=== PATIENT | male | born 1965 | race Caucasian/White ===

== ENCOUNTER 2020-04-09 08:41 | Outpatient (CLI) | payer BC ==
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
--- NOTE | 2020-04-09 12:15 | MRI ---
CERVICAL SPINE MRI WITHOUT CONTRAST: Date: 04/09/2020 COMPARISON: 06/16/2019. HISTORY: Prior cervical surgery, recent trauma. TECHNIQUE: Multiplanar, multisequence MR imaging of the cervical spine is provided without contrast. FINDINGS: Bilateral posterior fusion hardware and changes of bilateral laminectomy again noted at C4, C5, and C 6. Sagittal STIR imaging demonstrates no focal area of osseous marrow edema. 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 There is mild degenerative change at the atlantoaxial interspace. 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 There is facet hypertrophy bilaterally with probabl e mild neural foraminal stenosis bilaterally. No significant central canal stenosis. C3-4: There is disc space narrowing with disc desiccation and disc bulge partially effacing the vent ral thecal sac and leading to a mild/moderate degree of stable central canal stenosis. Facet and unco vertebral osteophyte formation noted bilaterally with moderate/severe bilateral neural foraminal sten osis. C4-5: No central canal stenosis. Facet and uncovertebral osteophyte formation suspected, right great er than left. Foramina are not optimally assessed secondary to hardware artifact. Bilateral neural fo raminal stenosis suspected, right greater than left. C5-6: Small central disc protrusion. No central canal stenosis. Bilateral facet and uncovertebral os teophyte formation suspected, right greater than left. Disc space narrowing with disc desiccation. Pr obable mild/moderate right neural foraminal stenosis and questionable mild left neural foraminal sten osis. C6-7: Facet and uncovertebral osteophyte formation on the left lead to moderate left neural foramina l stenosis. No significant central canal or right neural foraminal stenosis. C7-T1: Bilateral facet and uncovertebral osteophyte formation with mild left and moderate right neur al foraminal stenosis. No significant central canal stenosis. No focal area of abnormal signal intensity within the cervical cord. IMPRESSION: Postoperative and degenerative changes of the cervical spine as detailed above. POS: [facility]
== END 2020-04-09 08:42 | disposition home or self-care (01) ==
LOC: TBSIIMAG 08:41
PROVIDERS: ATTEND Anesthesiology Pain Medicine
DX: M48.02 Spinal stenosis, cervical region (principal); M47.811 Spondylosis without myelopathy or radiculopathy, occipito-atlanto-axial region; M48.03 Spinal stenosis, cervicothoracic region; M25.78 Osteophyte, vertebrae; M50.31 Other cervical disc degeneration, high cervical region; M50.21 Other cervical disc displacement, high cervical region; M50.81 Other cervical disc disorders, high cervical region; M51.26 Other intervertebral disc displacement, lumbar region; M51.27 Other intervertebral disc displacement, lumbosacral region; M48.061 Spinal stenosis, lumbar region without neurogenic claudication; Q76.49 Other congenital malformations of spine, not associated with scoliosis; M47.816 Spondylosis without myelopathy or radiculopathy, lumbar region; M47.817 Spondylosis without myelopathy or radiculopathy, lumbosacral region; Z98.1 Arthrodesis status
CPT/HCPCS: 72141; 72148

== ENCOUNTER 2021-03-07 12:42 | Outpatient (CLI) | payer BC ==
[2021-03-07 20:29] LABS: SARS-CoV-2 PCR by NAA Not Detected (NotDetected)
== END 2021-03-07 12:43 | disposition home or self-care (01) ==
LOC: LABBT 12:42
PROVIDERS: ATTEND Internal Medicine Gastroenterology
DX: Z01.812 Encounter for preprocedural laboratory examination (principal); K22.70 Barrett's esophagus without dysplasia; K21.9 Gastro-esophageal reflux disease without esophagitis; Z20.822 Contact with and (suspected) exposure to COVID-19
CPT/HCPCS: U0003; U0005

== ENCOUNTER → 2021-03-10 | Day surgery (SDC) | payer BC | LOC: SDC 07:19 | PROVIDERS: ATTEND Internal Medicine Gastroenterology | DX: K22.70 Barrett's esophagus without dysplasia (principal); K21.9 Gastro-esophageal reflux disease without esophagitis; Z88.0 Allergy status to penicillin | CPT/HCPCS: 91010 ==

== ENCOUNTER 2021-05-06 07:43 | Outpatient (CLI) | payer BC | END 2021-05-06 07:44 | disposition home or self-care (01) | LOC: NM 07:43 | PROVIDERS: ATTEND Internal Medicine Gastroenterology | DX: K22.70 Barrett's esophagus without dysplasia (principal); K21.9 Gastro-esophageal reflux disease without esophagitis | CPT/HCPCS: 78264; A9541 ==